=== PATIENT | male | born 1940 | race Caucasian/White ===

== ENCOUNTER → 2018-01-16 | Outpatient (CLI) | payer MEDICARE, OTHER ==
[~2018-01-16] MED LIST: CONTRAST GIVEN. MC; IOHEXOL 300 MG/ML 10ML VIAL. IT; LIDOCAINE WITH 8.4% SOD BICARB 3 ML DISP.SYRIN.
[2018-01-16] MEDS: LIDOCAINE WITH 8.4% SOD BICARB 3 ML DISP.SYRIN. INJ (13:15)
[2018-01-16] MEDS: IOHEXOL 300 MG/ML 100ML VIAL. IT (14:20)
== END | disposition home or self-care (01) ==
LOC: RAD 12:29
DX: M48.05 Spinal stenosis, thoracolumbar region (principal)
CPT/HCPCS: 72129; 72132; 72270; Q9967

== ENCOUNTER 2018-02-15 07:18 | Inpatient (IN) | payer MEDICARE, OTHER ==
[~2018-02-15 07:18] MED LIST changes: -CONTRAST GIVEN. MC; +DEXAMETHASONE SOD PHOS 20 MG/5 ML VIAL.; -IOHEXOL 300 MG/ML 10ML VIAL. IT; +LIDOCAINE 1% PF 2 ML VIAL. ID; +LIDOCAINE 2% PF Vial for OR 5 ML VIAL.; -LIDOCAINE WITH 8.4% SOD BICARB 3 ML DISP.SYRIN.; +MORPHINE SULFATE 2 MG/ML DISP.SYRIN. IV; +ONDANSETRON PF 4 MG/2 ML VIAL.; +ONDANSETRON PF 4 MG/2 ML VIAL. IV; +PROCHLORPERAZINE 10 MG/2 ML VIAL. IV; +PROPOFOL 20 ML IV; +PROPOFOL 50 ML IV; +ROCURONIUM 50 MG/5 ML VIAL.; +fentaNYL PF VIAL 100 MCG/2 ML VIAL IV
[2018-02-15] MEDS: IV RINGERS,LACTATED 1000ML 1,000 ML IV (08:06)
[2018-02-15] MEDS ORDERED: ePHEDrine PF IN SALINE 50 MG/5 ML DISP.SYRIN IV (08:20)
[2018-02-15] MEDS ORDERED: REMIFENTANIL 2 MG VIAL. IV ×2 (08:20→11:40)
[2018-02-15] MEDS ORDERED: fentaNYL PF VIAL 100 MCG/2 ML VIAL ×2 (08:50→13:03)
[2018-02-15] MEDS ORDERED: GLYCOPYRROLATE 1 MG/5 ML VIAL. (09:16)
[2018-02-15] MEDS: THROMBIN TOPICAL 20,000 UNIT SPRAY.SYRN KIT TP ×2 (09:39→12:40)
[2018-02-15] MEDS: BUPIVAC MPF-EPI 0.5%-1:200000 30 ML VIAL. INJ (09:39)
[2018-02-15] MEDS: GELATIN SPONGE SIZE 100. ×2 (09:39→12:40)
[2018-02-15] MEDS: BACITRACIN 50,000 UNIT in IV NORMAL SALINE 1000ML BAG 1,000 ML IRR (09:39)
[2018-02-15] MEDS: KETOROLAC 60 MG/2 ML INJ FOR OR. (09:39)
[2018-02-15] MEDS ORDERED: MIDAZOLAM HCL/PF 2 MG/2 ML VIAL. (10:04)
[2018-02-15] MEDS ORDERED: PHENYLEPHRINE 10 MG/ML VIAL. (10:33)
[2018-02-15] MEDS ORDERED: PROPOFOL 20 ML IV ×2 (11:58)
[2018-02-15] MEDS ORDERED: ceFAZolin 2GM PREMIX 2 GM/50 ML BAG IV (12:00)
[2018-02-15] MEDS ORDERED: NEOSTIGMINE METHYLSULFATE 5 MG/5 ML SYRINGE. (12:35)
[2018-02-15] MEDS ORDERED: PROCHLORPERAZINE 10 MG/2 ML VIAL. (13:03)
[2018-02-15] MEDS: POTASSIUM CL 20MEQ D5-0.45NACL 1,000 ML IV (13:11)
[2018-02-15] MEDS ORDERED: 0.9 % SODIUM CHLORIDE 10 ML DISP.SYRIN. IV (13:15)
[2018-02-15] MEDS ORDERED: ACETAMINOPHEN 325 MG TABLET. PO (13:15)
[2018-02-15] MEDS ORDERED: diphenhydrAMINE HCL 25 MG CAPSULE PO (13:15)
[2018-02-15] MEDS ORDERED: fentaNYL PF VIAL 100 MCG/2 ML VIAL IV ×2 (13:15)
[2018-02-15] MEDS ORDERED: HYDROcodone/APAP 7.5/325MG 1 TAB TABLET PO ×2 (13:15)
[2018-02-15] MEDS ORDERED: diphenhydrAMINE 50 MG/ML VIAL IV (13:15)
[2018-02-15] MEDS: fentaNYL PF VIAL 100 MCG/2 ML VIAL IV ×2 (14:13→14:44)
[2018-02-15] MEDS: LISINOPRIL 20 MG TABLET PO (15:36)
[2018-02-15] MEDS: MULTIVITAMIN I-VITE TABLET. PO (15:36)
[2018-02-15] MEDS: METHOCARBAMOL 750 MG TABLET PO ×2 (15:36→21:08)
[2018-02-15] MEDS: VERAPAMIL SR 120 MG TABLET.ER. PO (21:06)
[2018-02-15] MEDS: MELOXICAM 7.5 MG TABLET PO (21:06)
[2018-02-15] MEDS: TERAZOSIN 1 MG CAPSULE. PO (21:07)
[2018-02-15] MEDS: DOCUSATE SODIUM 100 MG CAPSULE. PO (21:07)
[2018-02-15] MEDS: MIRTAZAPINE 15 MG TABLET PO (21:08)
[2018-02-15] MEDS: SENNOSIDES/DOCUSATE 8.6/50MG TABLET. PO (21:08)
[2018-02-15] MEDS: MAGNESIUM HYDROXIDE 2,400 MG/30 ML ORAL.SUSP. PO (21:08)
[2018-02-15] MEDS: ATORVASTATIN CALCIUM 10 MG TABLET. PO (21:08)
[2018-02-15] MEDS: CALCIUM CARBONATE 500 MG TAB.CHEW PO (21:54)
[2018-02-16] MEDS: MAG HYDROX/ALUMINUM HYD/SIMETH 30 ML ORAL.SUSP PO ×2 (03:02→12:55)
[2018-02-16] MEDS: traMADol 50 MG TABLET PO (03:17)
[2018-02-16] MEDS: MULTIVITAMIN with MINERAL TABLET. PO (08:29)
[2018-02-16] MEDS: MULTIVITAMIN I-VITE TABLET. PO (08:29)
[2018-02-16] MEDS: DOCUSATE SODIUM 100 MG CAPSULE. PO (08:31)
[2018-02-16] MEDS: LISINOPRIL 20 MG TABLET PO (08:31)
[2018-02-16] MEDS: ASPIRIN CHEWABLE 81 MG TABLET. PO (08:31)
[2018-02-16] MEDS: METHOCARBAMOL 750 MG TABLET PO (08:31)
== END 2018-02-16 14:20 | disposition home or self-care (01) | DRG 519 ==
LOC: OPSVCIP 07:18 → 4 NORTH 15:19
PROC: 00NX0ZZ Release Thoracic Spinal Cord, Open Approach (ICD-10-PCS; principal; 2018-02-15 08:30)
PROC: 00NY0ZZ Release Lumbar Spinal Cord, Open Approach (ICD-10-PCS; 2018-02-15 08:30)
PROC: 4A11X4G Monitoring of Peripheral Nervous Electrical Activity, Intraoperative, External Approach (ICD-10-PCS; 2018-02-15 08:30)
DX: M48.05 Spinal stenosis, thoracolumbar region (principal); M47.15 Other spondylosis with myelopathy, thoracolumbar region; I10 Essential (primary) hypertension
CPT/HCPCS: 76000; 88304; 88311; 97161-GP; A7015; J0690; J1100; J1885; J2001; J2250; J2405; J2704; J2710; J3010; J3490; J7030; J7120